=== PATIENT | male | born 1955 | race Caucasian/White ===

== ENCOUNTER 2016-06-16 06:22 | Day surgery (SDC) | payer OTHER ==
[~2016-06-16] VITALS: Ht 170.2 cm; Wt 74.2 kg
[~2016-06-16 06:22] MED LIST: ERGO500037 PO; GLIM2TAB PO; METF500T PO; METO-448 PO; NIFE60TA7 PO; TAMS0.4C2 PO; TRIAMCINOLONE PO
[2016-06-16 07:11] VITALS: Ht 170.2 cm; Wt 74.2 kg
[2016-06-16 07:20] VITALS: BP 131/92; PULSE 80; RESP 20
[2016-06-16] MEDS ORDERED: MIDAZOLAM 1 MG/ML 2 ML INJ ONE ×3 (08:29)
[2016-06-16] MEDS ORDERED: FENTAnyl 50 MCG/ML VIAL ONE (08:29)
[2016-06-16 09:06] VITALS: BP 120/86; PULSE 82; RESP 14
--- NOTE | 2016-06-16 10:37 | GILP ---
DATE OF PROCEDURE: 06/16/2016 NAME OF PROCEDURE: Colonoscopy, biopsy and polypectomy. SURGEON: Josh Luong MD PREOPERATIVE DIAGNOSIS: Screening colonoscopy. POSTOPERATIVE DIAGNOSES: 1. Colonoscopy all the way to the cecum. 2. Right colon polyp was removed using the snare and electrocautery. 3. Sigmoid colon polyp was removed using the biopsy forceps. 4. Diverticulosis of the colon. 5. Internal hemorrhoids. INDICATION FOR THE PROCEDURE: Mr. Marc Burgos is a 60-year-old male patient who was scheduled fo r screening colonoscopy. The procedure and possible complications were well explained to the patient, he understood and conse nted to the procedure. DESCRIPTION OF PROCEDURE: Under the influence of fentanyl and Versed, the colonoscope was carefully introduced in the rectum and under direct vision, it was advanced all the way to the cecum. FINDINGS: The patient had a right colon polyp and it was removed using the snare and electrocautery . The patient also had a sigmoid colon polyp and it was removed using the biopsy forceps. He was n oted to have diverticulosis of the colon and internal hemorrhoids. He tolerated the procedure very well and there was no complication from the procedure. At the end o f the procedure, he was awake with stable vital signs and he was discharged home to the care of his family. IMPRESSION: Please see postoperative diagnoses. PLAN: 1. Await histopathology report. 2. Next screening colonoscopy in 5 years. Dictated By: JOSH ZAMORA/ALBER Conf#: [id number] DID#: [id number] CC: JOSH LUONG MD;*EndCC*
== END 2016-06-16 10:16 | disposition home or self-care (01) ==
LOC: GIL 06:22
PROVIDERS: ATTEND Internal Medicine Gastroenterology
DX: Z12.11 Encounter for screening for malignant neoplasm of colon (principal); D12.5 Benign neoplasm of sigmoid colon; K57.90 Diverticulosis of intestine, part unspecified, without perforation or abscess without bleeding; K64.8 Other hemorrhoids; I10 Essential (primary) hypertension; E11.9 Type 2 diabetes mellitus without complications
CPT/HCPCS: 45380; 82962; 88305; J2250; J3010; Z7610